=== PATIENT | female | born 1960 | race American Indian/Alaskan Native ===

== ENCOUNTER 2020-12-21 10:52 | Emergency (ER) | payer OTHER ==
[2020-12-21 11:28] VITALS: BP 101/75
--- NOTE | 2020-12-21 12:06 | Event Note ---
ED Screening Note Date of service: 12/21/20 Time: 12:02 ED Screening Note: 60-year-old female patient with history of schizophrenia (not currently on medications) presents to the emergency department with complaints of visual hallucinations, anxiety, depression, stress. States she feels unsafe at home because she "feels like there is someone else there." She is currently under the care of an outpatient psychiatrist, who has reportedly told her that "it will take time to get to the root of the problem, and I don't want to hurt myself or anyone else in the meantime. He said the only way to address this is with medication." She has not filled her prescription. She cannot recall the name of the prescribed medication. She lives at home with her mother. Mild tachycardia noted in triage General: Awake, appropriately interactive, no acute distress. Neck: Supple. Full range of motion intact. Cardiovascular: Normal peripheral perfusion. Pulmonary: No respiratory distress. Patient is speaking normally without use of accessory muscles. Skin: No apparent rashes or lesions. Neurological: No facial asymmetry. Speech is clear. Follows commands. Patient is alert and oriented. Musculoskeletal: Moves all four extremities spontaneously with normal range of motion. Psych: Cooperative. Circumstantial speech. Appropriate eye contact. I have greeted and performed a focused rapid initial assessment of this patient. A comprehensive ED assessment and evaluation of the patient, analysis of all test results, and completion of the medical decision-making process will be conducted by additional ED providers. This initial assessment/diagnostic orders/clinical plan/treatment(s) is/are subject to change based on patients health status, clinical progression and re-assessment. Further treatment and workup at subsequent clinical provider's discretion. Patient/guardian urged not to elope from the ED as their condition may be serious if not clinically assessed and managed.
[2020-12-21 13:53] LABS: Hemoglobin 13.3 gm/dl (10.1-14.3); Mean Corpuscular HGB Conc 33 % (30-34); Mean Corpuscular Volume 87 fl (79-97); Platelet Count 342 K/mm3 (140-440); Red Cell Distribution Width 15.6 % (13.2-15.2)
[2020-12-21 14:11] LABS: BUN/Creatinine Ratio 17; Blood Urea Nitrogen 15 mg/dL (7-17); Calcium 10.6 mg/dL (8.4-10.2); Hemolysis Index 4
[2020-12-21 14:37] LABS: Total Cells Counted 100
[2020-12-21 14:38] LABS: Anisocytosis 1+; Platelet Estimate Consistent w Auto
== END 2020-12-21 21:50 | disposition left against medical advice (07) ==
LOC: ED 10:52
DX: F20.9 Schizophrenia, unspecified (principal); Z53.21 Procedure and treatment not carried out due to patient leaving prior to being seen by health care provider
CPT/HCPCS: 36415; 80048; 80320; 85007; 85025; G0480